=== PATIENT | male | born 1995 | race Caucasian/White ===

== ENCOUNTER 2019-03-25 19:26 | Emergency (ER) | payer BC | END 2019-03-25 22:15 | disposition left against medical advice (07) | LOC: JD.ED 19:26 | DX: Z53.21 Procedure and treatment not carried out due to patient leaving prior to being seen by health care provider (principal) ==

== ENCOUNTER 2019-05-04 21:15 | Emergency (ER) | payer BC ==
--- NOTE | 2019-05-04 22:29 | EDM.PDOC ---
ED HPI GENERAL MEDICAL PROBLEM - General Chief Complaint: Chest Pain Stated Complaint: [facility] Time Seen by Provider: 05/04/19 21:52 Source of Information: Reports: Patient, RN Notes Reviewed History Limitations: Reports: No Limitations - History of Present Illness INITIAL COMMENTS - FREE TEXT/NARRATIVE: Patient is a 24-year-old male who presents to the ED via [place] ambulance service for the evaluation of chest pressure and arm and leg heaviness. Patient notes that he was sleeping at home, and was awakened by discomfort to his upper chest. He states this felt as if someone was just placing a hand on his chest, lightly pressing it. He does note that he also was experiencing some arm and leg heaviness, and he related this to the feeling right before your arms fall asleep if you are sleeping on them for too long. Patient states he has been having issues with headaches for quite some time, and took Motrin around 1500. He states that after he developed the chest pressure, he was also getting himself worked up, and thought he may have panicked himself little bit, he was experiencing some dizziness, and light disorientation as well. He is not complaining of any abdominal pain. He further denies any past medical history other than possible anxiety. He states that he is a cigarette smoker, he smokes about 1/2 to 1 pack/day, with roughly an 8-year history. He denies alcohol use and denies drug use. He states there is no diagnoses of early heart disease in his family. He states his father is as "healthy as a horse". Left Shoulder Pain Score (Numeric/FACES): 0 - Related Data Allergies Allergy/AdvReac Type Severity Reaction Status Date / Time No Known Allergies Allergy Verified 03/25/19 19:39 Home Meds: Home Meds . [No Known Home Meds] 03/25/19 [History] Past Medical History - Past Health History Medical/Surgical History: Denies Medical/Surgical History - Past Surgical History Musculoskeletal Surgical History: Reports: Other (See Below) Other Musculoskeletal Surgeries/Procedures:: left femur with kristy Social & Family History - Tobacco Use Smoking Status *Q: Current Every Day Smoker Years of Tobacco use: 5 Packs/Tins Daily: 0.5 - Caffeine Use Caffeine Use: Reports: None - Recreational Drug Use Recreational Drug Use: No ED ROS GENERAL - Review of Systems Review Of Systems: See Below Constitutional: Denies: Fever, Chills Respiratory: Denies: Shortness of Breath, Cough Cardiovascular: Reports: Chest Pain (chest discomfort), Lightheadedness. Denies : Dyspnea on Exertion, Palpitations GI/Abdominal: Denies: Abdominal Pain, Diarrhea, Nausea, Vomiting Neurological: Reports: Headache. Denies: Confusion, Dizziness, Weakness Psychiatric: Reports: Anxiety ED EXAM, GENERAL - Physical Exam Exam: See Below Exam Limited By: No Limitations General Appearance: Alert, WD/WN, No Apparent Distress Eye Exam: Bilateral Eye: EOMI, Normal Inspection, PERRL Throat/Mouth: Normal Inspection, Normal Lips, Normal Teeth, Normal Gums, Normal Oropharynx, Normal Voice, No Airway Compromise Head: Atraumatic, Normocephalic Neck: Normal Inspection Respiratory/Chest: No Respiratory Distress, Lungs Clear, Normal Breath Sounds, No Accessory Muscle Use, Chest Non-Tender Cardiovascular: Normal Peripheral Pulses, Regular Rate, Rhythm, No Murmur Peripheral Pulses: 3+: Radial (L), Radial (R) GI/Abdominal: Normal Bowel Sounds, Soft, Non-Tender, No Distention, No Mass Extremities: Normal Inspection, Normal Capillary Refill Neurological: Alert, Oriented, CN II-XII Intact (grossly), Normal Cognition, No Motor/Sensory Deficits Psychiatric: Normal Affect, Normal Mood, Anxious (slightly anxious) Skin Exam: Warm, Dry, Intact, Normal Color, No Rash EKG INTERPRETATION EKG Date: 05/04/19 Time: 22:15 Rhythm: NSR Rate (Beats/Min): 98 [place]: Normal P-Wave: Present QRS: Normal ST-T: Normal QT: Normal Comparison: NA - No Prior EKG EKG Interpretation Comments: No acute ischemic changes. Reviewed by myself and Dr. Thurman. Course - Vital Signs Last Recorded V/S: Last Vital Signs Temp 97.1 F 05/04/19 21: Pulse 98 05/04/19 21:27 Resp 20 05/04/19 21:27 BP 143/92 H 05/04/19 21:27 Pulse Ox 100 05/04/19 21:27 - Orders/Labs/Meds Orders: Active Orders 24 hr Category Date Time Status EKG Documentation Completion [RC] STAT Care 05/04/19 21:53 Ordered Chest 1V Frontal [CR] Stat Exams 05/04/19 21:53 Ordered Labs: Laboratory Tests 05/04/19 05/04/19 Range/Units 22:09 22:09 WBC 11.28 H (4.23-9.07) K/mm3 RBC 5.08 (4.63-6.08) M/mm3 Hgb 15.8 (13.7-17.5) gm/dl Hct 47.6 (40.1-51.0) % MCV 93.7 H (79.0-92.2) fl MCH 31.1 (25.7-32.2) pg MCHC 33.2 (32.2-35.5) g/dl RDW Std Deviation 45.0 H (35.1-43.9) fL Plt Count 274 (163-337) K/mm3 MPV 10.9 (9.4-12.3) fl Neutrophils % (Manual) 70 H (40-60) % Band Neutrophils % 2 (0-10) % Lymphocytes % (Manual) 20 (20-40) % Atypical Lymphs % 0 % Monocytes % (Manual) 6 (2-10) % Eosinophils % (Manual) 2 (0.8-7.0) % Basophils % (Manual) 0 L (0.2-1.2) Platelet Estimate Adequate RBC Morph Comment Normal Sodium 141 (136-145) mEq/L Potassium 4.7 (3.5-5.1) mEq/L Chloride 105 (98-107) mEq/L Carbon Dioxide 28 (21-32) mEq/L Anion Gap 12.7 (5-15) BUN 29 H (7-18) mg/dL Creatinine 1.1 (0.7-1.3) mg/dL Est Cr Clr Drug Dosing 106.92 mL/min Estimated GFR (MDRD) > 60 (>60) mL/min BUN/Creatinine Ratio 26.4 H (14-18) Glucose 95 (74-106) mg/dL Calcium 9.1 (8.5-10.1) mg/dL Total Bilirubin 0.2 (0.2-1.0) mg/dL AST 36 (15-37) U/L ALT 69 H (16-63) U/L Alkaline Phosphatase 72 (46-116) U/L Troponin I < 0.017 (0.00-0.056) ng/mL Total Protein 7.5 (6.4-8.2) g/dl Albumin 3.8 (3.4-5.0) g/dl Globulin 3.7 gm/dL Albumin/Globulin Ratio 1.0 (1-2) - Re-Assessments/Exams Free Text/Narrative Re-Assessment/Exam: 05/04/19 22:41 Patient presents to the ED for evaluation of chest pressure. I do believe a lot of his symptoms are stemming from stress or anxiety in nature, he states that he is between jobs at this time, and is unemployed. He notes that he has 3 young children at home that he has to care for as well. I did order EKG, CBC , CMP, troponin and a chest x-ray for further evaluation. EKG demonstrates normal sinus rhythm with no acute ischemic changes noted. This was reviewed by myself and Dr. Thurman. 05/04/19 23:01 Laboratory evaluation demonstrates no focal abnormalities. White blood cell count is mildly elevated, but I do believe this is a stress response in nature as there is no discernible left shift on the manual differential. Troponin is also negative at this time. Chest x-ray also is within normal limits. I will discharge him home at this time, I do believe that most of his issues were due to increased anxiety/stress. Departure - Departure Time of Disposition: 23:03 Disposition: Home, Self-Care 01 Condition: Fair Clinical Impression: Chest discomfort, Anxiety Instructions: Living With Anxiety Forms: ED Department Discharge Additional Instructions: You were evaluated in the ER today regarding your chest discomfort. You had an EKG, chest x-ray, and labs taken and these were all within normal limits, you are not having a heart attack at today's visit. Your symptoms are most consistent with increased stress/anxiety. Recommend that you try to seek counseling, or try to talk with someone about your life/ feelings to see if this does not help. You may also try stress reducing activities as warranted. Strongly recommend you set up care with a primary care provider, to help follow your health on a more regular basis. You may call [phone] and set up with any family practice provider of choice. Please try to do so Tuesday, or at your earliest convenience for a follow-up visit. Please return to the ER if your symptoms change or worsen. Sepsis Event Note - Evaluation Sepsis Screening Result: No Definite Risk - Focused Exam Vital Signs: Vital Signs Temp Pulse Resp BP Pulse Ox 05/04/19 21:27 97.1 F 98 20 143/92 H 100 Date Exam was Performed: 05/04/19 Time Exam was Performed: 23:06 - My Orders Last 24 Hours: My Active Orders 05/04/19 21:53 EKG Documentation Completion [RC] STAT Chest 1V Frontal [CR] Stat - Assessment/Plan Last 24 Hours: My Active Orders 05/04/19 21:53 EKG Documentation Completion [RC] STAT Chest 1V Frontal [CR] Stat
--- NOTE | 2019-05-05 17:09 | CR ---
Chest: Portable view of the chest was obtained. Comparison: No prior chest imaging is available. Heart size and mediastinum are within normal limits for portable technique. Lungs are clear with no acute parenchymal change. Bony structures appear unremarkable. Impression: 1. Nothing acute is appreciated on portable chest x-ray. Diagnostic code #1 This report was dictated in [place] Standard Time
== END 2019-05-04 23:15 | disposition home or self-care (01) ==
LOC: JD.ED 21:15
DX: R07.89 Other chest pain (principal); F41.9 Anxiety disorder, unspecified; F17.210 Nicotine dependence, cigarettes, uncomplicated
CPT/HCPCS: 36415; 71045; 71045-26; 80053; 84484; 85007; 85027; 93005; 99285-25

== ENCOUNTER 2019-09-07 00:58 | Emergency (ER) | payer BC ==
--- NOTE | 2019-09-07 02:26 | EDM.PDOC ---
ED HPI GENERAL MEDICAL PROBLEM - General Chief Complaint: General Stated Complaint: poss panic attack Time Seen by Provider: 09/07/19 01:57 Source of Information: Reports: Patient History Limitations: Reports: No Limitations - History of Present Illness INITIAL COMMENTS - FREE TEXT/NARRATIVE: Mr. Valles is a very pleasant 24-year-old man with no chronic medical problems, who now presents to the ED stating that he woke up around 00:45, then, shortly after, began feeling diaphoretic, with his chest pounding and feeling anxious. He states that he thought he was having a stroke. He states that he was hyperventilating. He states that when he ambulated, he had the sensation of walking on rubber legs. His symptoms lasted about 5 to 10 minutes, and essentially resolved prior to his arriving to the ED. The patient states that he has had similar symptoms at least 3 times in the past. Here in the ED, the patient's BP is found to be mildly elevated at 141/85, with slight tachycardia of 102 bpm, otherwise, he is afebrile, saturating 97% on room air. Other than this morning symptoms, the patient denies recent fever, chills, sore throat, ear pain, nasal or sinus congestion, cough, dyspnea, chest pain, nausea, vomiting, constipation, diarrhea, abdominal pain, urinary symptoms, recent weight gain or weight loss, recent bloody bowel movements or black bowel movements, recent joint aches, headaches, or rashes. The patient does not have a PCP. - Related Data Allergies Allergy/AdvReac Type Severity Reaction Status Date / Time No Known Allergies Allergy Verified 09/07/19 01:15 Home Meds: Home Meds Krill Oil 500 mg PO DAILY 09/07/19 [History] Magnesium Amino Acid Chelate [Magnesium] 100 mg PO DAILY 09/07/19 [History] Potassium Gluconate [Potassium] 400 mg PO DAILY 09/07/19 [History] Past Medical History Musculoskeletal History: Reports: Fracture (left femur) Endocrine/Metabolic History: Reports: Obesity/BMI 30+ - Past Surgical History Musculoskeletal Surgical History: Reports: Other (See Below) (Left femur rodding when 14 yrs old) Social & Family History - Family History Family Medical History: Noncontributory - Tobacco Use Smoking Status *Q: Former Smoker Years of Tobacco use: 10 Packs/Tins Daily: 2 Month/Year Tobacco Last Used: Quit July 2019 - Caffeine Use Caffeine Use: Reports: None - Alcohol Use Alcohol Use History: Yes Alcohol Use Frequency: Rarely - Recreational Drug Use Recreational Drug Use: Yes Drug Use in Last 12 Months: No Recreational Drug Type: Reports: Marijuana/Hashish (last smoked 2009) - Living Situation & Occupation Living situation: Reports: Single, with Significant Other (Girlfriend), with Family (1 child) Occupation: Employed ([employer]) ED ROS GENERAL - Review of Systems Review Of Systems: Comprehensive ROS is negative, except as noted in HPI. ED EXAM, GENERAL - Physical Exam Exam: See Below Exam Limited By: No Limitations General Appearance: Alert, WD/WN, No Apparent Distress Eye Exam: Bilateral Eye: EOMI, Normal Inspection Ears: Normal External Exam, Hearing Grossly Normal Nose: Normal Inspection Throat/Mouth: Normal Inspection, Normal Lips, Normal Voice, No Airway Compromise Head: Atraumatic, Normocephalic Neck: Normal Inspection, Full Range of Motion Respiratory/Chest: No Respiratory Distress, Lungs Clear, Normal Breath Sounds, No Accessory Muscle Use Cardiovascular: Normal Peripheral Pulses, Regular Rate, Rhythm, No Edema, No Gallop, No JVD, No Murmur, No Rub Peripheral Pulses: 3+: Radial (L), Radial (R) GI/Abdominal: Normal Bowel Sounds, Soft, Non-Tender, No Organomegaly, No Distention, No Abnormal Bruit, No Mass (Male) Exam: Deferred Rectal (Males) Exam: Deferred Back Exam: Normal Inspection, Full Range of Motion, NT Extremities: Normal Inspection, Normal Range of Motion, No Pedal Edema, Normal Capillary Refill Neurological: Alert, Oriented, Normal Cognition, No Motor/Sensory Deficits Psychiatric: Normal Affect Skin Exam: Warm, Dry, Intact, Normal Color, No Rash Course - Vital Signs Last Recorded V/S: Last Vital Signs Temp 36.4 C 09/07/19 01:10 Pulse 102 H 09/07/19 01:10 Resp 18 09/07/19 01:10 BP 141/85 H 09/07/19 01:10 Pulse Ox 97 09/07/19 01:10 - Re-Assessments/Exams Free Text/Narrative Re-Assessment/Exam: 09/07/19 02:22 As above, the patient woke up, then felt diaphoretic, with rapid palpitations, tachypnea, and anxiety. He was likely suffering from a panic attack, however, his symptoms essentially resolved after 5 to 10 minutes, and here in the ED, he is feeling much better. His physical exam is completely benign. I do not see an indication for any work-up at this time, however, I am going to refer him to the clinic where he can discuss treatment options for anxiety, as well as be evaluated for overall health issues, such as blood pressure, cholesterol, weight, etc. Departure - Departure Time of Disposition: 02:23 Disposition: Home, Self-Care 01 Condition: Good Clinical Impression: Anxiety - Discharge Information *PRESCRIPTION DRUG MONITORING PROGRAM REVIEWED*: Not Applicable *COPY OF PRESCRIPTION DRUG MONITORING REPORT IN PATIENT RYAN: Not Applicable Instructions: Living With Anxiety Referrals: Sherrie Flores NP [Nurse Practitioner] - Forms: ED Department Discharge Additional Instructions: You were seen in the emergency room after developing sweatiness, rapid palpitat ions, rapid breathing, and feeling anxious, this morning. Based on your history and physical examination, you were most likely suffering from a panic attack. We recommend that you follow-up with Sherrie Flores NP, or one of the other providers in the clinic, to discuss treatment options for anxiety, and whether or not treatment is right for you. Once you establish a PCP, they can also go over measures to monitor your health, such as your blood pressure, cholesterol, etc. If any other problems, please do not hesitate to return to the ER. Sepsis Event Note (ED) - Evaluation Sepsis Screening Result: No Definite Risk
== END 2019-09-07 02:30 | disposition home or self-care (01) ==
LOC: JD.ED 00:58
DX: F41.9 Anxiety disorder, unspecified (principal); E66.9 Obesity, unspecified; Z68.41 Body mass index [BMI] 40.0-44.9, adult; Z87.891 Personal history of nicotine dependence
CPT/HCPCS: 99282; 99283

== ENCOUNTER 2020-03-14 18:57 | Emergency (ER) | payer BC ==
[2020-03-14] MEDS ORDERED: Orphenadrine 100 MG Tab.ER PO STA (19:43)
--- NOTE | 2020-03-14 19:49 | EDM.PDOC ---
ED HPI GENERAL MEDICAL PROBLEM - General Chief Complaint: Back Pain or Injury Stated Complaint: BACK PAIN Time Seen by Provider: 03/14/20 19:15 Source of Information: Reports: Patient History Limitations: Reports: No Limitations - History of Present Illness INITIAL COMMENTS - FREE TEXT/NARRATIVE: Mr. Valles is a very pleasant 25-year-old gentleman who now presents to the ED with lower back pain that has been waxing and waning since , 03/07/2020. He states that when severe, it will typically last a few hours, with 5-6 episodes of severity per day. He states that his pain is made worse if he flexes, and occasionally with walking, otherwise, he has not identified any modifiers. He also reports pain in his anterior pelvis, for the same duration. He denies, however, any urinary symptoms, or incontinence of bowel or bladder. The patient also reports pain to both of his lower extremities for the past couple of weeks, but it is not related to his lower back/pelvic pain. He denies having lower extremity weakness. The patient states that his symptoms improve if he takes oral ibuprofen or an Epsom salt bath. The patient states that he had similar symptoms for about 3 days from 02/23/2020 through 02/26/2020, but that they resolved on their own without any specific treatment. Here in the ED, the patient's initial BP is found to be modestly elevated at 155/95, otherwise, he is hemodynamically stable, afebrile, saturating 97% on room air. Prior to 02/23/2020, the patient denies having a recent fever, chills, sore throat, ear pain, nasal or sinus congestion, cough, dyspnea, chest pain, palpitations, nausea, vomiting, constipation, diarrhea, abdominal pain, urinary symptoms, recent weight gain or weight loss, recent bloody bowel movements or b lack bowel movements, recent joint aches, headaches, or rashes. The patient's PCP is Dr. Kayli Rasheed. He has not received an influenza vaccine this season, and declined an offer to receive one in the ED. - Related Data Allergies Allergy/AdvReac Type Severity Reaction Status Date / Time No Known Allergies Allergy Verified 03/14/20 19:12 Home Meds: Home Meds Krill Oil 500 mg PO DAILY 09/07/19 [History] Magnesium Amino Acid Chelate [Magnesium] 100 mg PO DAILY 09/07/19 [History] Potassium Gluconate [Potassium] 400 mg PO DAILY 09/07/19 [History] Orphenadrine [Norflex] 1 tab PO Q12H PRN #14 tab.er 03/14/20 [Rx] Past Medical History Musculoskeletal History: Reports: Fracture (left femur) Endocrine/Metabolic History: Reports: Obesity/BMI 30+ - Past Surgical History Musculoskeletal Surgical History: Reports: Other (See Below) (Left femur rodding around 2008) Social & Family History - Tobacco Use Tobacco Use Status *Q: Former Tobacco User Years of Tobacco use: 7 Packs/Tins Daily: 2 Month/Year Tobacco Last Used: Quit July 2019 - Caffeine Use Caffeine Use: Reports: None - Alcohol Use Alcohol Use History: Yes Alcohol Use Frequency: Rarely - Recreational Drug Use Recreational Drug Use: Yes Drug Use in Last 12 Months: No Recreational Drug Type: Reports: Marijuana/Hashish (last smoked around 2014) - Living Situation & Occupation Living situation: Reports: Single, with Significant Other (Fianc), with Family (3 kids) Occupation: Unemployed (Laid off from [employer]) ED ROS GENERAL - Review of Systems Review Of Systems: Comprehensive ROS is negative, except as noted in HPI. ED EXAM,LOWER BACK PAIN/INJURY - Physical Exam Exam: See Below Exam Limited By: No Limitations General Appearance: Alert, WD/WN, No Apparent Distress Eye Exam: Bilateral Eye: EOMI, Normal Inspection Ears: Normal External Exam, Hearing Grossly Normal Nose: Normal Inspection Throat/Mouth: Normal Voice, No Airway Compromise, Other (Wearing a mask) Head: Atraumatic, Normocephalic Neck: Normal Inspection, Full Range of Motion Respiratory/Chest: No Respiratory Distress, Lungs Clear, Normal Breath Sounds, No Accessory Muscle Use Cardiovascular: Normal Peripheral Pulses, Regular Rate, Rhythm, No Gallop, No JVD, No Murmur, No Rub GI/Abdominal: Normal Bowel Sounds, Soft, Non-Tender (including the suprapubic region), No Organomegaly, No Distention, No Abnormal Bruit, No Mass Back Exam: Normal Inspection, Full Range of Motion, Other (The patient is able to identify pain to his lower left and lower right back, however, there is no tenderness to direct palpation. The straight leg raise is limited to 45 degrees bilaterally due to posterior lower extremity strain, with no induction of lower back pain. Is able to flex the spine to 10 degrees, but extended to 45 degrees. He is able to tilt the spine to 45 degrees bilaterally. He is able to twist the spine to 45 degrees bilaterally. Unilateral knee bend is normal bilaterally.). No: CVA Tenderness (L), CVA Tenderness (R) Extremities: Normal Inspection, Normal Range of Motion, No Pedal Edema, Normal Capillary Refill Neurological: Alert, No Motor/Sensory Deficits, Oriented x 3 Psychiatric: Normal Affect Skin Exam: Warm, Dry, Intact, Normal Color, No Rash Course - Vital Signs Last Recorded V/S: Last Vital Signs Temp 36.7 C 03/14/20 19:07 Pulse 92 03/14/20 19:07 Resp 18 03/14/20 19:07 BP 155/95 H 03/14/20 19:07 Pulse Ox 97 03/14/20 19:07 - Orders/Labs/Meds Labs: Laboratory Tests 03/14/20 Range/Units 19:58 Urine Color Yellow (Yellow) Urine Appearance Clear (Clear) Urine pH 6.0 (5.0-8.0) Ur Specific [place] 1.020 (1.005-1.030) Urine Protein Negative (Negative) Urine Glucose (UA) Negative (Negative) Urine Ketones Negative (Negative) Urine Occult Blood Negative (Negative) Urine Nitrite Negative (Negative) Urine Bilirubin Negative (Negative) Urine Urobilinogen 0.2 (0.2-1.0) Ur Leukocyte Esterase Negative (Negative) Urine RBC 0-5 (0-5) /hpf Urine WBC 0-5 (0-5) /hpf Ur Squamous Epith Cells 0-5 (0-5) /hpf Urine Bacteria Occasional (FEW) /hpf Urine Mucus Not seen (FEW) /hpf Meds: Medications Discontinued Medications Generic Name Dose Route Start Last Admin Trade Name Freq PRN Reason Stop Dose Admin Orphenadrine Citrate 100 mg 03/14/20 19:43 03/14/20 19:47 Norflex PO 03/14/20 19:44 100 mg ONETIME STA Administration - Re-Assessments/Exams Free Text/Narrative Re-Assessment/Exam: 03/14/20 19:43 The patient's history and physical examination are most consistent with lower back muscle strain, and not consistent with a herniated intervertebral disc. I am therefore recommending treatment with Norflex, along with ibuprofen. The patient also needs to stay active. He stated that swimming is not a possibility for him, but he is able to walk, despite his discomfort. Because of his tear pelvic pain, I have ordered a urinalysis. 03/14/20 21:02 The patient's urinalysis is completely normal. I will discharge him home. Departure - Departure Time of Disposition: 19:44 Disposition: Home, Self-Care 01 Condition: Good Clinical Impression: Spasm of muscle of lower back - Discharge Information *PRESCRIPTION DRUG MONITORING PROGRAM REVIEWED*: Not Applicable *COPY OF PRESCRIPTION DRUG MONITORING REPORT IN PATIENT RYAN: Not Applicable Prescriptions: Orphenadrine [Norflex] 1 tab PO Q12H PRN #14 tab.er PRN Reason: Muscle Spasm Instructions: Muscle Cramps and Spasms, [id number] Referrals: Kayli Rasheed MD [Primary Care Provider] - Forms: ED Department Discharge Additional Instructions: You were seen in the emergency room for lower back pain waxing and waning since . Work-up in the ER included a urinalysis, which returned completely normal. Based on your history, physical examination, and ER urinalysis, your lower back pain is due to a muscle spasm. It is unlikely that you are suffering from a herniated intervertebral disc. You have been started on the muscle relaxant Norflex, and a prescription for Norflex has been sent to the [facility], located just south and across the [address] from [facility]. Take 1 tablet of Norflex every 12 hours, starting tomorrow morning, 03/15/2020, as prescribed. Norflex works well with ibuprofen. We recommend that you take [id number] ibuprofen, 3 to 4 tablets (600-800 mg) up to every 8 hours, with food, as needed for pain. As discussed, it is very important that you stay active. Swimming is best, but if that is not a possibility for you, walking is almost as good. We also recommend that you perform lower back stretches, to gently increase your range of motion. You can stop taking the Norflex and ibuprofen if your symptoms resolved, however, if your symptoms persist for 1 week despite the prescription for Norflex, we recommend that you follow-up with your PCP, Dr. Kayli Rasheed, for further evaluation. If any other problems, please do not hesitate to return to the ER. Sepsis Event Note (ED) - Evaluation Sepsis Screening Result: No Definite Risk - Focused Exam Vital Signs: Vital Signs Temp Pulse Resp BP Pulse Ox 03/14/20 19:07 36.7 C 92 18 155/95 H 97
== END 2020-03-14 21:08 | disposition home or self-care (01) ==
LOC: JD.ED 18:57
DX: M62.830 Muscle spasm of back (principal); E66.9 Obesity, unspecified; Z87.891 Personal history of nicotine dependence; Z68.42 Body mass index [BMI] 45.0-49.9, adult
CPT/HCPCS: 81001; 99283; A9270